=== PATIENT | male | born 1985 | race Caucasian/White ===

== ENCOUNTER 2017-02-24 12:01 | Emergency (ER) | payer MEDICAID ==
[2017-02-24 14:08] LABS: BASOPHILS 0.1 % (0-2); EOSINOPHILS 0.9 % (0-7); HEMATOCRIT 46.2 % (42.0-54.0); HEMOGLOBIN 16.8 g/dL (13.5-17.5); IMMATURE GRANULOCYTES 0.3 % (0-5); LYMPHOCYTES 19.2 % (15-50); MCH 33.1 pg (26.0-34.0); MCHC 36.4 g/dL (31.0-37.0); MCV 91.1 fL (80.0-100.0); MEAN PLATELET VOLUME 10.8 fL (7.4-10.4); MONOCYTES 7.7 % (2-11); NEUTROPHILS 71.8 % (40-80); PLATELET COUNT 243 10x3/uL (130-400); RBC 5.07 10x6/uL (4.20-6.10); RDW 12.1 % (11.5-14.5); WBC 14.8 10x3/uL (4.8-10.8)
[2017-02-24 14:40] LABS: ALBUMIN 3.7 g/dL (3.4-5.0); ALKALINE PHOSPHATASE 65 U/L (46-116); ALT (SGPT) 79 U/L (10-68); BILIRUBIN - TOTAL 0.53 mg/dL (0.2-1.3); CALC OSMOLALITY 275 mosm/kg (275-300); CALCIUM 9.2 mg/dL (8.5-10.1); CARBON DIOXIDE 29.9 mmol/L (21.0-32.0); CHLORIDE - SERUM 103 mmol/L (98-107); CREATININE - SERUM 0.8 mg/dL (0.6-1.3); GLUCOSE 96 mg/dL (74-106); PROTEIN - SERUM 7.3 g/dL (6.4-8.2); SODIUM 138 mmol/L (136-145); UREA NITROGEN 13 mg/dL (7-18); eGFR NON AFRICAN AMERICAN > 90 mL/min (90-120)
== END 2017-02-24 16:20 | disposition home or self-care (01) ==
LOC: D.ER 12:01
PROVIDERS: Physician Assistant
DX: R51 Headache (principal); R11.2 Nausea with vomiting, unspecified; R68.83 Chills (without fever); M54.16 Radiculopathy, lumbar region; B19.20 Unspecified viral hepatitis C without hepatic coma; F17.200 Nicotine dependence, unspecified, uncomplicated

== ENCOUNTER 2018-07-07 19:22 | Emergency (ER) | payer MEDICAID ==
[~2018-07-07] VITALS: Ht 182.9 cm; Wt 97.7 kg
[2018-07-07 19:26] VITALS: Ht 182.9 cm; Wt 97.7 kg
[2018-07-07] MEDS ORDERED: HYDROCODON-ACE1 EA10 PO (19:26)
[2018-07-07] MEDS ORDERED: IMITREX50 MG PO (21:24)
[2018-07-07 22:13] VITALS: BP 144/89
== END 2018-07-07 22:44 | disposition home or self-care (01) ==
LOC: D.ER 19:22
DX: G43.909 Migraine, unspecified, not intractable, without status migrainosus (principal)

== ENCOUNTER 2018-11-04 11:09 | Emergency (ER) | payer BC ==
[~2018-11-04] VITALS: Ht 182.9 cm; Wt 97.7 kg
[~2018-11-04 11:09] MED LIST: HYDROCODON-ACE1 EA10 PO; IMITREX50 MG PO
[2018-11-04 11:14] VITALS: Ht 182.9 cm; Wt 97.7 kg
[2018-11-04 11:43] LABS: APPEARANCE CLEAR (CLEAR); BILIRUBIN NEGATIVE (NEGATIVE); COLOR YELLOW (YELLOW); GLUCOSE NEGATIVE (NEGATIVE); KETONE NEGATIVE (NEGATIVE); NITRITE NEGATIVE (NEGATIVE); PROTEIN NEGATIVE (NEGATIVE); SPECIFIC GRAVITY 1.025 (1.005-1.020); UROBILINOGEN NORMAL (NORMAL)
[2018-11-04 11:47] LABS: BASOPHILS 0.2 % (0-2); EOSINOPHILS 3.6 % (0-7); HEMATOCRIT 47.9 % (42.0-54.0); HEMOGLOBIN 17.9 g/dL (13.5-17.5); IMMATURE GRANULOCYTES 0.1 % (0-5); LYMPHOCYTES 41.8 % (15-50); MCHC 37.4 g/dL (31.0-37.0); MCV 88.4 fL (80.0-100.0); MEAN PLATELET VOLUME 10.6 fL (7.4-10.4); NEUTROPHILS 47.3 % (40-80); PLATELET COUNT 284 10x3/uL (130-400); RBC 5.42 10x6/uL (4.20-6.10); RDW 12.2 % (11.5-14.5); WBC 8.9 10x3/uL (4.8-10.8)
[2018-11-04 12:01] LABS: ALBUMIN 4.1 g/dL (3.4-5.0); ALKALINE PHOSPHATASE 70 U/L (46-116); ALT (SGPT) 73 U/L (10-68); AMYLASE - SERUM 99 U/L (25-115); BILIRUBIN - TOTAL 0.82 mg/dL (0.2-1.3); CALC OSMOLALITY 272 mosm/kg (275-300); CALCIUM 9.3 mg/dL (8.5-10.1); CARBON DIOXIDE 23.2 mmol/L (21.0-32.0); CHLORIDE - SERUM 102 mmol/L (98-107); CREATININE - SERUM 0.9 mg/dL (0.6-1.3); GLUCOSE 110 mg/dL (74-106); LIPASE 329 U/L (73-393); POTASSIUM - SERUM 4.8 mmol/L (3.5-5.1); PROTEIN - SERUM 8.2 g/dL (6.4-8.2); SODIUM 136 mmol/L (136-145); UREA NITROGEN 13 mg/dL (7-18); eGFR NON AFRICAN AMERICAN > 90 mL/min (90-120)
[2018-11-04] MEDS ORDERED: ZOFRAN ODT4 MG/UDTAB PO (14:27)
[2018-11-04 14:50] VITALS: BP 134/92
== END 2018-11-04 14:50 | disposition home or self-care (01) ==
LOC: D.ER 11:09
PROVIDERS: Emergency Medicine
DX: R11.2 Nausea with vomiting, unspecified (principal); K52.9 Noninfective gastroenteritis and colitis, unspecified

== ENCOUNTER 2019-02-22 17:05 | Emergency (ER) | payer SELFPAY ==
[~2019-02-22] VITALS: Ht 182.9 cm; Wt 97.7 kg
[~2019-02-22 17:05] MED LIST changes: +ZOFRAN ODT4 MG/UDTAB PO
[2019-02-22 17:28] VITALS: BP 166/73; Ht 182.9 cm; Wt 97.7 kg
[2019-02-22] MEDS ORDERED: HYDROCODONE-A1 UDTA2 PO (18:44)
== END 2019-02-22 19:24 | disposition home or self-care (01) ==
LOC: D.ER 17:05
DX: T20.10XA Burn of first degree of head, face, and neck, unspecified site, initial encounter (principal); X12.XXXA Contact with other hot fluids, initial encounter; T25.232A Burn of second degree of left toe(s) (nail), initial encounter

== ENCOUNTER 2019-03-01 19:19 | Inpatient (IN) | payer MEDICAID ==
[~2019-03-01] VITALS: Ht 182.9 cm; Wt 97.5 kg
[~2019-03-01 19:19] MED LIST changes: +HYDROCODONE-A1 UDTA2 PO
[2019-03-01 20:44] LABS: BASOPHILS 0.1 % (0-2); EOSINOPHILS 4.6 % (0-7); HEMATOCRIT 41.7 % (42.0-54.0); IMMATURE GRANULOCYTES 0.1 % (0-5); LYMPHOCYTES 43.9 % (15-50); MCH 33.1 pg (26.0-34.0); MCV 92.1 fL (80.0-100.0); MEAN PLATELET VOLUME 10.6 fL (7.4-10.4); MONOCYTES 8.5 % (2-11); NEUTROPHILS 42.8 % (40-80); PLATELET COUNT 261 10x3/uL (130-400); RBC 4.53 10x6/uL (4.20-6.10); RDW 12.1 % (11.5-14.5); WBC 8.5 10x3/uL (4.8-10.8)
[2019-03-01 20:52] LABS: APTT 30.3 SECONDS (22.8-39.4); INR 1.01 (0.85-1.17); PROTIME 12.8 SECONDS (11.6-15.0)
[2019-03-01 21:38] LABS: ALBUMIN 3.6 g/dL (3.4-5.0); ALKALINE PHOSPHATASE 68 U/L (46-116); ALT (SGPT) 61 U/L (10-68); BILIRUBIN - TOTAL 0.87 mg/dL (0.2-1.3); CALC OSMOLALITY 282 mosm/kg (275-300); CALCIUM 8.5 mg/dL (8.5-10.1); CARBON DIOXIDE 28.9 mmol/L (21.0-32.0); CHLORIDE - SERUM 103 mmol/L (98-107); GLUCOSE 118 mg/dL (74-106); POTASSIUM - SERUM 3.7 mmol/L (3.5-5.1); PROTEIN - SERUM 7.4 g/dL (6.4-8.2); SODIUM 140 mmol/L (136-145); UREA NITROGEN 22 mg/dL (7-18); eGFR NON AFRICAN AMERICAN > 90 mL/min (90-120)
--- NOTE | 2019-03-02 01:12 | NUR ---
PT REPORTS BURNING SENSATION AND NECK TURNING RED. STOPPED VANCOMYCIN INFUSION. REPORTED TO DR. MURRAY AND DR. SILVERMAN
--- NOTE | 2019-03-02 01:45 | NUR ---
RECIEVED REPORT FROM ER, ARRIVED ON WHEELCHAIR WITH SPOUSE AT SIDE. VSS, AAOX4, NO S/S OF DISTRESS. ALTHOUGH PT C/O PAIN 01/09. WILL ADMINISTER PAIN PILL WHEN DUE. HADF RECIEVED REPORT FROM ER NURSE THAT PT WAS ALLERGIC TO VANC. AND IV BENADRYL WAS GIVEN PRIOR TO ADMINITION TO THE UNIT. PT STATE " I FEEL BETTER, ALTHOUGH STILL A LITTLE ITCHY." PT PRESENTS WILL MILD FLUSHING. SCAB/SORE NOTED ON RIGHT WRIST, WOUND/SCABS NOTED OF FOOT. PT A GOOD HISTORIAN. ADMISSION ASSESSMENT COMPLETED. PT DENIES ANY FURTHER NEEDS AT THIS TIME. WILL CPOC.
[2019-03-02] MEDS ORDERED: HYDROCODON-ACE1 EA10 PO (01:47)
[2019-03-02 01:49] VITALS: BP 139/89; BMI 29.2
[2019-03-02] MEDS ORDERED: HYDROCODONE-A1 UDTA2 PO (01:49)
[2019-03-02 04:00] VITALS: BP 142/77
[2019-03-02 07:21] LABS: BASOPHILS 0.1 % (0-2); EOSINOPHILS 4.9 % (0-7); HEMATOCRIT 44.2 % (42.0-54.0); HEMOGLOBIN 15.7 g/dL (13.5-17.5); LYMPHOCYTES 43.5 % (15-50); MCH 32.8 pg (26.0-34.0); MCHC 35.5 g/dL (31.0-37.0); MCV 92.3 fL (80.0-100.0); MEAN PLATELET VOLUME 10.8 fL (7.4-10.4); MONOCYTES 11.2 % (2-11); NEUTROPHILS 40.3 % (40-80); PLATELET COUNT 278 10x3/uL (130-400); RBC 4.79 10x6/uL (4.20-6.10); RDW 12.2 % (11.5-14.5); WBC 8.6 10x3/uL (4.8-10.8)
[2019-03-02 07:45] LABS: ALBUMIN 3.4 g/dL (3.4-5.0); ALKALINE PHOSPHATASE 70 U/L (46-116); BILIRUBIN - TOTAL 0.65 mg/dL (0.2-1.3); CALC OSMOLALITY 283 mosm/kg (275-300); CARBON DIOXIDE 30.3 mmol/L (21.0-32.0); CHLORIDE - SERUM 106 mmol/L (98-107); CREATININE - SERUM 0.9 mg/dL (0.6-1.3); GLUCOSE 117 mg/dL (74-106); MAGNESIUM - SERUM 1.9 mg/dL (1.8-2.4); PHOSPHOROUS 3.6 mg/dL (2.5-4.9); POTASSIUM - SERUM 4.2 mmol/L (3.5-5.1); SODIUM 141 mmol/L (136-145); UREA NITROGEN 18 mg/dL (7-18); VANCOMYCIN - RANDOM 5.7 ug/mL (10.0-20.0); eGFR NON AFRICAN AMERICAN > 90 mL/min (90-120)
[2019-03-02 07:50] LABS: ALT (SGPT) 61 U/L (10-68)
--- NOTE | 2019-03-02 08:36 | NUR ---
NEW IV START 22G IN RIGHT FOREARM. ONE STICK. THE LEFT AC IV HAD INFILTRATED, AND REMOVED WITH CATHETER INTACT. PATIENT TOLERATED. .
[2019-03-02 09:48] VITALS: BP 129/78
--- NOTE | 2019-03-02 10:11 | NUR ---
PATIENT IS SITTING UP IN BED. HE DENIES ANY NEEDS AT THIS TIME. PAIN HAS BEEN CONTROLLED WITH MEDICATIONS. WAITNG ON WOUND CARE NURSE.
--- NOTE | 2019-03-02 12:16 | NUR ---
CALLED AND ASKED IF DR MARTINEZ HAD SEEN THE CONSULT. HIS NURSE IN HIS OFFICE SAID SHE WOULD CALL HIM.
--- NOTE | 2019-03-02 12:31 | NUR ---
CALLED [facility] WOUND CARE NURSE, AND SHE SAID TO CALL DR MARTINEZ. I CALLED HIS OFFICE AND REMINDED THEM OF THE CONSULT.
--- NOTE | 2019-03-02 12:35 | MORECARE ---
CASE MANAGEMENT DISCHARGE SUMMARY PATIENT: KENNETH PATTERSON UNIT: [id number] ADM DATE: 03/01/19 AGE: 33 : 83 SEX: M ROOM/BED: D.1210 AUTHOR: LEONA TSE PHYSICIAN: REFERRING PHYSICIAN: TIERRA BANG MD DATE OF SERVICE: 03/02/19 Discharge Plan Patient Name: KENNETH PATTERSON [facility] : 1985 Planned Disposition: Home Anticipated Discharge Date: 03/04/19 Discharge Date: Expected LOS: 3 Initial Reviewer: [email or web address] Initial Review Date: 03/01/2019 Generated: 03/02/19 1:35 pm DCPIA - Discharge Planning Initial Assessment Updated by [email or web address]: Susana Pacheco on 03/02/19 12:33 pm * Is the patient Alert and Oriented? Yes * How many steps to enter\exit or inside your home? none * PCP NO PCP * Pharmacy [facility] on [address] * Preadmission Environment Home with Family * ADLs Independent * Equipment None * List name and contact numbers for known caregivers / representatives who currently or will assist patient after discharge: Valeria Patterson -[phone] * Verbal permission to speak to the caregivers and representatives has been obtained from the patient. Yes * Community resources currently utilized None * Additional services required to return to the preadmission environment? No * Can the patient safely return to the preadmission environment? Yes * Has this patient been hospitalized within the prior 30 days at any hospital? No Patient Name: KENNETH PATTERSON Page [id number] at 1235 All edits/amendments must be made on the electronic document DICTATION DATE: 03/02/19 1235 TIRE FABRIC INSPECTOR: MELLY 03/02/19 1235 RPT#: [id number] DE DATE: STATUS: ADM IN [facility] [address] [place] [address] END OF REPORT
--- NOTE | 2019-03-02 12:46 | MORECARE ---
CASE MANAGEMENT DISCHARGE SUMMARY PATIENT: KENNETH PATTERSON UNIT: [id number] ADM DATE: 03/01/19 AGE: 33 : 83 SEX: M ROOM/BED: D.1210 AUTHOR: CARMENCITADOC PHYSICIAN: REFERRING PHYSICIAN: TIERRA BANG MD DATE OF SERVICE: 03/02/19 Discharge Plan Patient Name: KENNETH PATTERSON Facility: [facility]:[place] : 1985 Planned Disposition: Home Anticipated Discharge Date: 03/04/19 Discharge Date: Expected LOS: 3 Initial Reviewer: [email or web address] Initial Review Date: 03/01/2019 Generated: 03/02/19 1:46 pm Comments DCP- Discharge Planning Updated by [email or web address]: Susana Pacheco on 03/02/19 11:[address] DC PLAN: Return home with spouse independently. ANTICIPATED DC NEEDS: Denied known dc needs. CM met with patient to complete initial dc planning assessment. CM educated patient on the CM role and verbal consent given by patient to complete assessment. CM verified patient's address, phone number, and emergency contact phone numbers. Patient lives at home with his and reports he is independent in his care at home. At discharge patient plans to return home independently and feels this is a safe discharge. CM discussed availability of home health, rehab services, and medical equipment. Patient denied known discharge needs at this time. Patient reports his will transport him/her home at time of discharge. CM will continue to follow and will assist as needed with dc plans/needs. Susana Pacheco RN, [facility] DCPIA - Discharge Planning Initial Assessment Updated by [email or web address]: Susana Pacheco on 03/02/19 12:33 pm * Is the patient Alert and Oriented? Yes * How many steps to enter\exit or inside your home? none * PCP NO PCP * Pharmacy [facility] [address] * Preadmission Environment Home with Family * ADLs Independent * Equipment None * List name and contact numbers for known caregivers / representatives who currently or will assist patient after discharge: Valeria Patterson -[phone] * Verbal permission to speak to the caregivers and representatives has been obtained from the patient. Yes * Community resources currently utilized None * Additional services required to return to the preadmission environment? No * Can the patient safely return to the preadmission environment? Yes * Has this patient been hospitalized within the prior 30 days at any hospital? No Last DP export: 03/02/19 11:36 a Patient Name: KENNETH PATTERSON Page [id number] at 1246 All edits/amendments must be made on the electronic document DICTATION DATE: 03/02/191245 ASSEMBLER INSULATOR: MELLY 03/02/19 1246 RPT#: [id number] DC DATE: STATUS: ADM IN [facility] [address] [place] [address] END OF REPORT
--- NOTE | 2019-03-02 14:21 | NUR ---
PATIENT IS WAITING FOR DR TO LOOK AT HIS FOOT. THERE IS SWELLING AND REDNESS IN THE LEFT FOOT. TOES HAVE SCABS AND SORES WHERE THERE ARE PENA. PENA ON THE RIGHT WRIST, WITH SCABS AND SORES WELL. IV INFUSING ORDERED. PAIN IS BEING CONTROLLED ORDERED.
[2019-03-02 15:40] VITALS: BP 138/93
--- NOTE | 2019-03-02 19:50 | NUR ---
EVENING ROUNDS COMPLETED. VSS, WITH BP 167/95. PT STATE "IT'S BECAUSE I'M HURTING." WILL CLOSELY MONITOR AND ADMINISTER PAIN MED WHEN DUE. AAOX4, SPOUSE AT BEDSIDE. TEMI NOTED ON LEFT DORSAL DIGITS 1,2,3. ALTHOUGH NO 4X4'S NOR KERLIX DRESSING ON THE SORE. PT STATES HE ACCIDENTALLY PULLED IT OUT WHEN HE GOT UP TO THE RESTROOM. WILL APPLY NEW DRESSING. PT DENIES ANY FURTHER NEEDS FOR COMFORT CARE AT THIS TIME. CL WITHIN REACH.
[2019-03-02 19:55] VITALS: BP 167/95
[2019-03-03] VITALS: BP 156/92
[2019-03-03 04:36] VITALS: BP 115/81
--- NOTE | 2019-03-03 06:11 | NUR ---
DREW FROM [facility] NOTIFIED ME THAT SHE SOUND 2 CIGARETTE BUDS IN PT BATHROOM, ANDTHAT THE BATHROOM SMELLS LIKE CIGARETTE. I HAVE ASSESSED THE SITUATION AND THE BATHROOM DID SMELL LIKE CIGARETTE. WHEN I ASKED THE PT ABOUT THE CIGARETTE FOUND IN HIS BATHROOM TRASH CAN. PT DENIES SMOKING IN THE BATHROOM. HE ONLY AFFIRMS THAT THE TOOK THOSE CIGARETTE BUDS OUT OF HER POCKET AND DROPPED IT IN THE BATHROOM TRASH CAN.
[2019-03-03 09:09] VITALS: Ht 182.9 cm; Wt 97.5 kg
[2019-03-03] MEDS ORDERED: SILVADENE20 GM TOPICAL (12:13)
[2019-03-03] MEDS ORDERED: KEFLEX500 MG PO (12:41)
--- NOTE | 2019-03-03 14:21 | NUR ---
PATIENT IS STABLE AND VSS. ORDERS RECEIVED FOR DC . PATIENT DENIES ANY NEEDS . WRITTEN AND VERBAL DC INSTRUCTIONS GIVEN TO PATIENT.PATIENT VERBAILZED UNDERSTANDING AND SIGNED PAPERWORK. PATIENT TO FRONT DOOR VIA WC AND HOSPITAL PERSONNEL TO PRIVATE VEHICLE DRIVEN BY FRIEND. PATIENT DC TO HOME FOR SELF CARE.
--- NOTE | 2019-03-03 18:54 | MORECARE ---
CASE MANAGEMENT DISCHARGE SUMMARY PATIENT: KENNETH PATTERSON UNIT: [id number] ADM DATE: 03/01/19 AGE: 33 : 83 SEX: M ROOM/BED: D.1210 AUTHOR: CARMENCITADOC PHYSICIAN: REFERRING PHYSICIAN: TIERRA BANG MD DATE OF SERVICE: 03/03/19 Discharge Plan Patient Name: KENNETH PATTERSON Facility: [facility]:[place] : 1985 Planned Disposition: Home Anticipated Discharge Date: 03/04/19 Discharge Date: 03/03/2019 Expected LOS: 3 Initial Reviewer: [email or web address] Initial Review Date: 03/01/2019 Generated: 03/03/19 7:54 pm Comments DCP- Discharge Planning Updated by [email or web address]: Susana Pacheco on 03/02/19 11:[address] DC PLAN: Return home with spouse independently. ANTICIPATED DC NEEDS: Denied known dc needs. CM met with patient to complete initial dc planning assessment. CM educated patient on the CM role and verbal consent given by patient to complete assessment. CM verified patient's address, phone number, and emergency contact phone numbers. Patient lives at home with his and reports he is independent in his care at home. At discharge patient plans to return home independently and feels this is a safe discharge. CM discussed availability of home health, rehab services, and medical equipment. Patient denied known discharge needs at this time. Patient reports his will transport him/her home at time of discharge. CM will continue to follow and will assist as needed with dc plans/needs. Susana Pacheco RN, [facility] DCPIA - Discharge Planning Initial Assessment Updated by [email or web address]: Susana Pacheco on 03/02/19 12:33 pm * Is the patient Alert and Oriented? Yes * How many steps to enter\exit or inside your home? none * PCP NO PCP * Pharmacy [facility] [address] * Preadmission Environment Home with Family * ADLs Independent * Equipment None * List name and contact numbers for known caregivers / representatives who currently or will assist patient after discharge: Valeria Patterson -[phone] * Verbal permission to speak to the caregivers and representatives has been obtained from the patient. Yes * Community resources currently utilized None * Additional services required to return to the preadmission environment? No * Can the patient safely return to the preadmission environment? Yes * Has this patient been hospitalized within the prior 30 days at any hospital? No Last DP export: 03/02/19 11:46 a Patient Name: KENNETH PATTERSON Page [id number] at 1854 All edits/amendments must be made on the electronic document DICTATION DATE: 03/03/191853 MANAGING PARTNER [employer] [place]: MELLY 03/03/191853 RPT#: [id number] DC DATE:03/03/19 STATUS: DIS IN [facility] [address] [place] [address] END OF REPORT
== END 2019-03-03 14:23 | disposition home or self-care (01) | DRG 935 ==
LOC: D.ER 19:19 → D.M3 20:16
PROVIDERS: Family Medicine; ADMIT Family Medicine; ATTEND Family Medicine
DX: T25.232A Burn of second degree of left toe(s) (nail), initial encounter (principal); L03.032 Cellulitis of left toe; T31.0 Burns involving less than 10% of body surface; X10.0XXA Contact with hot drinks, initial encounter